=== PATIENT | female | born 1940 | race Caucasian/White ===

== ENCOUNTER 2022-10-14 15:28 | Inpatient (IN) | payer OTHER ==
[~2022-10-14] VITALS: Ht 142.2 cm; Wt 45.9 kg
[2022-10-14 15:40] VITALS: BP_SYST 138; PULSE 93; RESP 20; TEMP 98.3; O2SAT 99
[2022-10-14] MEDS ORDERED: cefTRIAXone 1 GM IVPB PREMIX 50 ML IV ONE (16:30)
[2022-10-14] MEDS ORDERED: NACL 0.9% 1,000 ML IV ONE (16:30)
[2022-10-14 17:10] LABS: BASOPHILS % (AUTO) 0.4 % (0.0-2.0); EOSINOPHILS % (AUTO) 0.1 % (0.0-4.0); HEMATOCRIT 44.3 % (36-48); HEMOGLOBIN 14.1 g/dL (12.0-16.0); LYMPHOCYTES # (AUTO) 1.1 K/uL (1.0-5.5); LYMPHOCYTES % (AUTO) 12.3 % (20.5-51.5); MEAN CORPUSCULAR HEMOGLOBIN 27 pg (27-31); MEAN CORPUSCULAR HGB CONC 32 % (32-36); MEAN CORPUSCULAR VOLUME 85 fL (79.0-98.0); MONOCYTES # (AUTO) 0.8 K/uL (0.0-1.0); MONOCYTES % (AUTO) 8.7 % (1.7-9.3); NEUTROPHILS # (AUTO) 7.1 K/uL (1.8-7.7); NEUTROPHILS % (AUTO) 78.5 % (40.0-70.0); PLATELET COUNT (AUTO) 287 K/uL (130-430); RED CELL DISTRIBUTION WIDTH 17.7 % (9.0-15.0); WHITE BLOOD COUNT (AUTO) 9.1 K/uL (4.8-10.8)
[2022-10-14 17:27] LABS: ANION GAP 14 (5-15); CALCIUM 8.8 mg/dL (8.4-11.0); CARBON DIOXIDE 25 mmol/L (23-29); CHLORIDE 104 mmol/L (98-107); GLUCOSE 123 mg/dL (74-106); SODIUM SERUM 143 mmol/L (136-145); UREA NITROGEN, BLOOD 29 mg/dL (8-21)
[2022-10-14 17:33] LABS: COLOR,URINE YELLOW (YELLOW)
[2022-10-14 17:34] LABS: BILIRUBIN,URINE NEGATIVE (NEGATIVE); BLOOD, URINE 2+ (NEGATIVE); CLARITY/URINE CLOUDY (CLEAR); GLUCOSE,URINE 2+ (NEGATIVE); KETONES,URINE NEGATIVE (NEGATIVE); LEUKOCYTE ESTERASE ,URINE 1+ (NEGATIVE); NITRITE, URINE POSITIVE (NEGATIVE); PH,URINE 5.5 (5.0-8.0); PROTEIN URINE 1+ (NEGATIVE); UROBILINOGEN,URINE 0.2 (0.2-1.0)
[2022-10-14 17:36] LABS: BACTERIA,URINE MANY /HPF (None Seen); WBC,URINE >100 /HPF (0-3)
[2022-10-14 17:41] LABS: ALANINE AMINOTRANSFERASE 20 U/L (12-78); ALBUMIN 3.8 g/dL (3.4-4.8); ASPARTATE AMINOTRANSFERASE 29 U/L (10-37); TOTAL BILIRUBIN 1.7 mg/dL (0.0-1.0); TOTAL PROTEIN, SERUM 8.1 g/dL (6.4-8.3)
[2022-10-14] MEDS ORDERED: DIGO125T PO (20:22)
[2022-10-14] MEDS ORDERED: GABA-529 PO (20:22)
[2022-10-14] MEDS ORDERED: MOM PO (20:22)
[2022-10-14] MEDS ORDERED: LIP10 PO (20:22)
[2022-10-14] MEDS ORDERED: BISA-79 PO (20:22)
[2022-10-14] MEDS ORDERED: ACET325T PO (20:22)
[2022-10-14] MEDS ORDERED: FLEPED RC (20:22)
[2022-10-14] MEDS ORDERED: FURO-150 PO (20:22)
[2022-10-14] MEDS ORDERED: DAPA5TAB PO (20:22)
[2022-10-14] MEDS ORDERED: MELA3TAB41 PO (20:22)
[2022-10-14] MEDS ORDERED: BISA10SU61 RC (20:22)
[2022-10-14] MEDS ORDERED: APIX2.5T PO (20:22)
[2022-10-14] MEDS ORDERED: AMLO5TAB4 PO (20:22)
[2022-10-14] MEDS ORDERED: SYN50 PO (20:22)
[2022-10-14] MEDS ORDERED: ALPHAGAN1 OP (20:23)
[2022-10-14 22:45] VITALS: BP_SYST 149; PULSE 101; RESP 18; TEMP 97.6; O2SAT 97
[2022-10-14 23:55] VITALS: O2SAT 97
[2022-10-15 00:17] VITALS: BP_SYST 147; PULSE 88; RESP 16; TEMP 97.3; O2SAT 97
[2022-10-15 07:40] VITALS: BP_SYST 141; PULSE 90; RESP 18; TEMP 97.1; O2SAT 98
[2022-10-15 08:32] LABS: BASOPHILS # (AUTO) 0.1 K/uL (0.0-0.2); BASOPHILS % (AUTO) 0.6 % (0.0-2.0); HEMATOCRIT 44.1 % (36-48); HEMOGLOBIN 14.3 g/dL (12.0-16.0); LYMPHOCYTES # (AUTO) 1.3 K/uL (1.0-5.5); LYMPHOCYTES % (AUTO) 14.3 % (20.5-51.5); MEAN CORPUSCULAR HEMOGLOBIN 28 pg (27-31); MEAN CORPUSCULAR HGB CONC 33 % (32-36); MEAN CORPUSCULAR VOLUME 86 fL (79.0-98.0); MONOCYTES # (AUTO) 0.8 K/uL (0.0-1.0); NEUTROPHILS # (AUTO) 7.2 K/uL (1.8-7.7); NEUTROPHILS % (AUTO) 77.1 % (40.0-70.0); PLATELET COUNT (AUTO) 274 K/uL (130-430); RED BLOOD CELL COUNT(AUTO) 5.13 MIL/uL (4.2-6.2); RED CELL DISTRIBUTION WIDTH 17.5 % (9.0-15.0); WHITE BLOOD COUNT (AUTO) 9.4 K/uL (4.8-10.8)
[2022-10-15 08:40] LABS: ANION GAP 15 (5-15); CALCIUM 8.7 mg/dL (8.4-11.0); CARBON DIOXIDE 25 mmol/L (23-29); CHLORIDE 109 mmol/L (98-107); CREATININE 0.99 mg/dL (0.55-1.30); GLUCOSE 91 mg/dL (74-106); POTASSIUM 4.1 mmol/L (3.5-5.1); SODIUM SERUM 149 mmol/L (136-145); UREA NITROGEN, BLOOD 27 mg/dL (8-21)
[2022-10-15 08:45] LABS: ALANINE AMINOTRANSFERASE 17 U/L (12-78); ALBUMIN 3.7 g/dL (3.4-4.8); ASPARTATE AMINOTRANSFERASE 29 U/L (10-37); TOTAL BILIRUBIN 1.8 mg/dL (0.0-1.0)
[2022-10-15] MEDS: EMPAGLIFLOZIN 10 MG TABLET PO SCH (09:00)
[2022-10-15] MEDS: DIGOXIN 0.125 MG TABLET PO SCH (09:00)
[2022-10-15] MEDS ORDERED: MILK OF MAGNESIA 30 ML UDC PO PRN (09:00)
[2022-10-15] MEDS ORDERED: SODIUM PHOSPHATE,MONO-DIBASIC 133 ML ENEMA RC PRN (09:00)
[2022-10-15 09:10] VITALS: O2SAT 98
[2022-10-15] MEDS: FUROSEMIDE 20 MG TABLET PO SCH (10:26)
[2022-10-15 16:00] VITALS: BP_SYST 148; PULSE 88; RESP 16; TEMP 97.1; O2SAT 99
[2022-10-15 20:00] VITALS: BP_SYST 122; PULSE 98; RESP 18; TEMP 97.7; O2SAT 99
[2022-10-15] MEDS: MELATONIN 3 MG TABLET PO SCH (21:00)
[2022-10-15] MEDS: ATORVASTATIN 10 MG TABLET PO SCH (21:00)
[2022-10-15] MEDS: GABAPENTIN 100 MG CAPSULE PO SCH (21:00)
[2022-10-15] MEDS: amLODIPine BESYLATE 5 MG TABLET PO SCH (21:00)
[2022-10-15] MEDS: BRIMONIDINE TARTRATE 0.2% 5 mL EYE DROPS OP SCH (23:43)
[2022-10-16] VITALS (9 sets, daily range): BP systolic 105–171; PULSE 91–117; RESP 16–19; TEMP 96.9–98.8; O2SAT 96–100
[2022-10-16] MEDS: LEVOTHYROXINE SODIUM 0.05 MG TABLET PO SCH (06:24)
[2022-10-16] MEDS: DIGOXIN 0.125 MG TABLET PO SCH (08:59)
[2022-10-16] MEDS: EMPAGLIFLOZIN 10 MG TABLET PO SCH (08:59)
[2022-10-16] MEDS: FUROSEMIDE 20 MG TABLET PO SCH (09:00)
[2022-10-16] MEDS: BRIMONIDINE TARTRATE 0.2% 5 mL EYE DROPS OP SCH ×2 (09:08→21:44)
[2022-10-16] MEDS ORDERED: LEVOFLOXACIN 250 MG/D5W 50 ML IV SCH (10:00)
[2022-10-16 10:10] LABS: INR 1.1 (0.8-1.2); PROTHROMBIN TIME 11.2 SECS (9.5-12.5)
[2022-10-16 10:22] LABS: DIGOXIN 0.4 ng/mL (0.80-2.00); THYROID STIMULATING HORMONE 4.07 uIu/mL (0.34-4.82)
[2022-10-16] MEDS: GABAPENTIN 100 MG CAPSULE PO SCH (21:42)
[2022-10-16] MEDS: ATORVASTATIN 10 MG TABLET PO SCH (21:42)
[2022-10-16] MEDS: amLODIPine BESYLATE 5 MG TABLET PO SCH (21:43)
[2022-10-16] MEDS: MELATONIN 3 MG TABLET PO SCH (21:44)
[2022-10-16] MEDS ORDERED: METOPROLOL TARTRATE 5 MG/5 ML VIAL IVP ONE (22:15)
[2022-10-17 01:03] VITALS: BP_SYST 87; PULSE 75; RESP 19; TEMP 97.3; O2SAT 100
[2022-10-17 05:37] LABS: BASOPHILS # (AUTO) 0.1 K/uL (0.0-0.2); BASOPHILS % (AUTO) 0.8 % (0.0-2.0); EOSINOPHILS % (AUTO) 0.2 % (0.0-4.0); HEMOGLOBIN 13.6 g/dL (12.0-16.0); LYMPHOCYTES # (AUTO) 1.4 K/uL (1.0-5.5); LYMPHOCYTES % (AUTO) 17.7 % (20.5-51.5); MEAN CORPUSCULAR HEMOGLOBIN 28 pg (27-31); MEAN CORPUSCULAR HGB CONC 32 % (32-36); MEAN CORPUSCULAR VOLUME 87 fL (79.0-98.0); MONOCYTES # (AUTO) 1.1 K/uL (0.0-1.0); MONOCYTES % (AUTO) 13.1 % (1.7-9.3); NEUTROPHILS # (AUTO) 5.5 K/uL (1.8-7.7); NEUTROPHILS % (AUTO) 68.2 % (40.0-70.0); PLATELET COUNT (AUTO) 265 K/uL (130-430); RED BLOOD CELL COUNT(AUTO) 4.85 MIL/uL (4.2-6.2); RED CELL DISTRIBUTION WIDTH 17.9 % (9.0-15.0)
[2022-10-17 05:56] LABS: ANION GAP 12 (5-15); CARBON DIOXIDE 26 mmol/L (23-29); CHLORIDE 116 mmol/L (98-107); GLUCOSE 115 mg/dL (74-106); POTASSIUM 4.4 mmol/L (3.5-5.1); SODIUM SERUM 154 mmol/L (136-145); UREA NITROGEN, BLOOD 44 mg/dL (8-21)
[2022-10-17] MEDS: LEVOTHYROXINE SODIUM 0.05 MG TABLET PO SCH (06:22)
[2022-10-17 08:11] VITALS: BP_SYST 128; PULSE 101; RESP 24; TEMP 97.9; O2SAT 99
[2022-10-17 08:30] VITALS: O2SAT 99
[2022-10-17] MEDS: DIGOXIN 0.125 MG TABLET PO SCH (09:26)
[2022-10-17] MEDS: FUROSEMIDE 20 MG TABLET JT SCH (09:27)
[2022-10-17] MEDS: BRIMONIDINE TARTRATE 0.2% 5 mL EYE DROPS OP SCH ×2 (09:27→22:56)
[2022-10-17] MEDS: LEVOFLOXACIN 250 MG/D5W 50 ML IV SCH (09:29)
[2022-10-17] MEDS: EMPAGLIFLOZIN 10 MG TABLET PO SCH (09:30)
[2022-10-17 12:59] VITALS: BP_SYST 121; PULSE 99; RESP 22; TEMP 97.5; O2SAT 97
[2022-10-17] MEDS ORDERED: METOPROLOL TARTRATE 5 MG/5 ML VIAL ONE (15:19)
[2022-10-17 16:00] VITALS: BP_SYST 125; PULSE 100; RESP 22; TEMP 97.7; O2SAT 98
[2022-10-17 20:00] VITALS: BP_SYST 129; PULSE 145; RESP 18; TEMP 97.4; O2SAT 98
[2022-10-17] MEDS ORDERED: METOPROLOL TARTRATE 5 MG/5 ML VIAL IVP ONE (21:15)
[2022-10-17] MEDS: amLODIPine BESYLATE 5 MG TABLET PO SCH (21:57)
[2022-10-17] MEDS: ATORVASTATIN 10 MG TABLET PO SCH (21:57)
[2022-10-17] MEDS: MELATONIN 3 MG TABLET PO SCH (21:57)
[2022-10-17] MEDS: GABAPENTIN 100 MG CAPSULE PO SCH (21:57)
[2022-10-18 00:13] VITALS: O2SAT 98
[2022-10-18 01:03] VITALS: BP_SYST 108; PULSE 98; RESP 18; TEMP 98.5; O2SAT 99
[2022-10-18 05:26] LABS: BASOPHILS # (AUTO) 0.1 K/uL (0.0-0.2); BASOPHILS % (AUTO) 0.6 % (0.0-2.0); EOSINOPHILS % (AUTO) 0.5 % (0.0-4.0); HEMATOCRIT 43.9 % (36-48); LYMPHOCYTES # (AUTO) 1.4 K/uL (1.0-5.5); LYMPHOCYTES % (AUTO) 15.8 % (20.5-51.5); MEAN CORPUSCULAR HEMOGLOBIN 28 pg (27-31); MEAN CORPUSCULAR HGB CONC 32 % (32-36); MEAN CORPUSCULAR VOLUME 87 fL (79.0-98.0); MONOCYTES # (AUTO) 0.8 K/uL (0.0-1.0); MONOCYTES % (AUTO) 9.1 % (1.7-9.3); NEUTROPHILS # (AUTO) 6.4 K/uL (1.8-7.7); PLATELET COUNT (AUTO) 256 K/uL (130-430); RED BLOOD CELL COUNT(AUTO) 5.07 MIL/uL (4.2-6.2); RED CELL DISTRIBUTION WIDTH 18.1 % (9.0-15.0); WHITE BLOOD COUNT (AUTO) 8.7 K/uL (4.8-10.8)
[2022-10-18 05:29] LABS: ANION GAP 12 (5-15); CALCIUM 8.9 mg/dL (8.4-11.0); CARBON DIOXIDE 27 mmol/L (23-29); CHLORIDE 118 mmol/L (98-107); CREATININE 1.97 mg/dL (0.55-1.30); GLUCOSE 127 mg/dL (74-106); POTASSIUM 4.3 mmol/L (3.5-5.1); SODIUM SERUM 157 mmol/L (136-145); UREA NITROGEN, BLOOD 74 mg/dL (8-21)
[2022-10-18] MEDS: LEVOTHYROXINE SODIUM 0.05 MG TABLET PO SCH (06:06)
[2022-10-18 08:00] VITALS: BP_SYST 133; PULSE 100; RESP 16; TEMP 97.5; O2SAT 98
[2022-10-18] MEDS: FUROSEMIDE 20 MG TABLET JT SCH (10:49)
[2022-10-18] MEDS: EMPAGLIFLOZIN 10 MG TABLET PO SCH (10:49)
[2022-10-18] MEDS: DIGOXIN 0.125 MG TABLET PO SCH (10:50)
[2022-10-18] MEDS: BRIMONIDINE TARTRATE 0.2% 5 mL EYE DROPS OP SCH ×2 (10:51→20:43)
[2022-10-18] MEDS ORDERED: DIGOXIN 0.5 MG/2 ML AMP IVP ONE ×3 (11:00→23:00)
[2022-10-18] MEDS: LEVOFLOXACIN 250 MG/D5W 50 ML IV SCH (11:05)
[2022-10-18 12:50] VITALS: BP_SYST 124; PULSE 96; RESP 16; TEMP 97.4; O2SAT 98
[2022-10-18 16:50] VITALS: BP_SYST 121; PULSE 90; RESP 16; TEMP 98; O2SAT 97
[2022-10-18 20:00] VITALS: BP_SYST 138; PULSE 70; RESP 18; TEMP 97.6; O2SAT 2; O2SAT 99
[2022-10-18] MEDS: GABAPENTIN 100 MG CAPSULE PO SCH (20:39)
[2022-10-18] MEDS: MELATONIN 3 MG TABLET PO SCH (20:41)
[2022-10-18] MEDS: METOPROLOL TARTRATE 25 MG TABLET PO SCH (20:43)
[2022-10-18] MEDS: ATORVASTATIN 10 MG TABLET PO SCH (21:17)
[2022-10-19] VITALS (12 sets, daily range): BP systolic 95–138; PULSE 64–90; RESP 16–32; TEMP 97.3–100.1; O2SAT 2–96
[2022-10-19] MEDS: LEVOTHYROXINE SODIUM 0.05 MG TABLET PO SCH (06:26)
[2022-10-19 07:29] LABS: BASOPHILS # (AUTO) 0.2 K/uL (0.0-0.2); BASOPHILS % (AUTO) 1.7 % (0.0-2.0); EOSINOPHILS % (AUTO) 0.1 % (0.0-4.0); HEMOGLOBIN 14.8 g/dL (12.0-16.0); LYMPHOCYTES # (AUTO) 1.2 K/uL (1.0-5.5); LYMPHOCYTES % (AUTO) 11.2 % (20.5-51.5); MEAN CORPUSCULAR HEMOGLOBIN 27 pg (27-31); MEAN CORPUSCULAR HGB CONC 31 % (32-36); MEAN CORPUSCULAR VOLUME 88 fL (79.0-98.0); MONOCYTES # (AUTO) 0.9 K/uL (0.0-1.0); MONOCYTES % (AUTO) 7.8 % (1.7-9.3); NEUTROPHILS # (AUTO) 8.7 K/uL (1.8-7.7); NEUTROPHILS % (AUTO) 79.2 % (40.0-70.0); PLATELET COUNT (AUTO) 252 K/uL (130-430); RED BLOOD CELL COUNT(AUTO) 5.43 MIL/uL (4.2-6.2); RED CELL DISTRIBUTION WIDTH 18.2 % (9.0-15.0)
[2022-10-19 07:52] LABS: ANION GAP 14 (5-15); CALCIUM 9.1 mg/dL (8.4-11.0); CARBON DIOXIDE 26 mmol/L (23-29); CHLORIDE 119 mmol/L (98-107); GLUCOSE 136 mg/dL (74-106); POTASSIUM 4.6 mmol/L (3.5-5.1); SODIUM SERUM 159 mmol/L (136-145); UREA NITROGEN, BLOOD 76 mg/dL (8-21)
[2022-10-19] MEDS: METOPROLOL TARTRATE 25 MG TABLET PO SCH ×2 (09:50→21:00)
[2022-10-19] MEDS: BRIMONIDINE TARTRATE 0.2% 5 mL EYE DROPS OP SCH ×2 (09:51→20:27)
[2022-10-19] MEDS: DIGOXIN 0.125 MG TABLET PO SCH (09:51)
[2022-10-19] MEDS: FUROSEMIDE 20 MG TABLET JT SCH (09:51)
[2022-10-19] MEDS: EMPAGLIFLOZIN 10 MG TABLET PO SCH (09:52)
[2022-10-19] MEDS: LEVOFLOXACIN 250 MG/D5W 50 ML IV SCH (09:53)
[2022-10-19] MEDS: MELATONIN 3 MG TABLET PO SCH ×2 (09:53→20:12)
[2022-10-19] MEDS: D5/0.45 NS 1,000 ML IV SCH (14:56)
[2022-10-19] MEDS ORDERED: FUROSEMIDE 20 MG/2 ML VIAL IVP ONE (20:00)
[2022-10-19] MEDS ORDERED: PANTOPRAZOLE SODIUM 40 MG/VIAL (PROTONIX) ONE (20:21)
[2022-10-19] MEDS: PANTOPRAZOLE SODIUM 40 MG/VIAL (PROTONIX) IVP SCH (20:23)
[2022-10-19] MEDS: GABAPENTIN 100 MG CAPSULE PO SCH (20:32)
[2022-10-19] MEDS: ATORVASTATIN 10 MG TABLET PO SCH (20:32)
[2022-10-19] MEDS ORDERED: METOPROLOL TARTRATE 5 MG/5 ML VIAL IVP PRN (20:45)
[2022-10-20] VITALS (7 sets, daily range): BP systolic 97–124; PULSE 69–88; RESP 15–20; TEMP 96.5–98.9; O2SAT 92–97
[2022-10-20 04:54] LABS: BASOPHILS % (AUTO) 0.1 % (0.0-2.0); HEMATOCRIT 50.1 % (36-48); HEMOGLOBIN 15.2 g/dL (12.0-16.0); LYMPHOCYTES # (AUTO) 1.5 K/uL (1.0-5.5); LYMPHOCYTES % (AUTO) 5.5 % (20.5-51.5); MEAN CORPUSCULAR HEMOGLOBIN 27 pg (27-31); MEAN CORPUSCULAR HGB CONC 30 % (32-36); MEAN CORPUSCULAR VOLUME 89 fL (79.0-98.0); MONOCYTES # (AUTO) 1.9 K/uL (0.0-1.0); MONOCYTES % (AUTO) 6.7 % (1.7-9.3); NEUTROPHILS # (AUTO) 24.6 K/uL (1.8-7.7); NEUTROPHILS % (AUTO) 87.7 % (40.0-70.0); PLATELET COUNT (AUTO) 219 K/uL (130-430); RED BLOOD CELL COUNT(AUTO) 5.63 MIL/uL (4.2-6.2); RED CELL DISTRIBUTION WIDTH 17.6 % (9.0-15.0)
[2022-10-20 05:15] LABS: ALANINE AMINOTRANSFERASE 15 U/L (12-78); ALBUMIN 3.5 g/dL (3.4-4.8); ANION GAP 14 (5-15); ASPARTATE AMINOTRANSFERASE 26 U/L (10-37); CALCIUM 8.9 mg/dL (8.4-11.0); CARBON DIOXIDE 26 mmol/L (23-29); CHLORIDE 119 mmol/L (98-107); CREATININE 2.74 mg/dL (0.55-1.30); GLUCOSE 204 mg/dL (74-106); POTASSIUM 4.7 mmol/L (3.5-5.1); SODIUM SERUM 159 mmol/L (136-145); TOTAL BILIRUBIN 1.1 mg/dL (0.0-1.0); UREA NITROGEN, BLOOD 94 mg/dL (8-21)
[2022-10-20] MEDS: LEVOTHYROXINE SODIUM 0.05 MG TABLET PO SCH (05:16)
[2022-10-20] MEDS: D5/0.45 NS 1,000 ML IV SCH ×2 (05:47→16:41)
[2022-10-20 07:50] LABS: BLOOD GAS PCO2 44.6 mmHg (35.0-45.0); BLOOD GAS PH 7.372 (7.350-7.450)
[2022-10-20 07:51] LABS: ABG O2 SAT% ESTIMATE 90.6 % (94.0-100.0); ALLEN'S TEST POSITIVE (P); BLOOD GAS BASE EXCESS -0.2 mmol/L (-3.0-3.0); BLOOD GAS HCO3 25.3 mmol/L (21.0-27.0); BLOOD GAS PO2 60.7 mmHg (75.0-100.0)
[2022-10-20] MEDS: FUROSEMIDE 20 MG TABLET JT SCH (08:45)
[2022-10-20] MEDS: METOPROLOL TARTRATE 25 MG TABLET PO SCH ×2 (08:46→21:00)
[2022-10-20] MEDS: DIGOXIN 0.125 MG TABLET PO SCH (08:46)
[2022-10-20] MEDS: EMPAGLIFLOZIN 10 MG TABLET PO SCH (08:46)
[2022-10-20] MEDS: BRIMONIDINE TARTRATE 0.2% 5 mL EYE DROPS OP SCH ×2 (08:54→22:11)
[2022-10-20] MEDS: PANTOPRAZOLE SODIUM 40 MG/VIAL (PROTONIX) IVP SCH (08:54)
[2022-10-20] MEDS ORDERED: DIGOXIN 0.5 MG/2 ML AMP IVP ONE (11:30)
[2022-10-20] MEDS ORDERED: LEVOTHYROXINE SODIUM 100 MCG/5 ML VIAL IVP ONE (11:30)
[2022-10-20] MEDS: ATORVASTATIN 10 MG TABLET PO SCH (21:00)
[2022-10-20] MEDS: MELATONIN 3 MG TABLET PO SCH (21:00)
[2022-10-20] MEDS: GABAPENTIN 100 MG CAPSULE PO SCH (21:00)
[2022-10-21 01:01] VITALS: BP_SYST 133; PULSE 75; RESP 20; TEMP 98.2; O2SAT 98
[2022-10-21 04:26] LABS: BASOPHILS % (AUTO) 0.1 % (0.0-2.0); HEMATOCRIT 49.2 % (36-48); HEMOGLOBIN 15.3 g/dL (12.0-16.0); LYMPHOCYTES # (AUTO) 1.2 K/uL (1.0-5.5); LYMPHOCYTES % (AUTO) 4.8 % (20.5-51.5); MEAN CORPUSCULAR HEMOGLOBIN 27 pg (27-31); MEAN CORPUSCULAR HGB CONC 31 % (32-36); MEAN CORPUSCULAR VOLUME 89 fL (79.0-98.0); MONOCYTES # (AUTO) 1.7 K/uL (0.0-1.0); MONOCYTES % (AUTO) 6.9 % (1.7-9.3); NEUTROPHILS # (AUTO) 21.5 K/uL (1.8-7.7); NEUTROPHILS % (AUTO) 88.2 % (40.0-70.0); PLATELET COUNT (AUTO) 186 K/uL (130-430); RED BLOOD CELL COUNT(AUTO) 5.56 MIL/uL (4.2-6.2); RED CELL DISTRIBUTION WIDTH 18.3 % (9.0-15.0); WHITE BLOOD COUNT (AUTO) 24.3 K/uL (4.8-10.8)
[2022-10-21 04:52] LABS: ALANINE AMINOTRANSFERASE 14 U/L (12-78); ANION GAP 14 (5-15); ASPARTATE AMINOTRANSFERASE 34 U/L (10-37); CARBON DIOXIDE 26 mmol/L (23-29); CREATININE 2.73 mg/dL (0.55-1.30); GLUCOSE 151 mg/dL (74-106); PHOSPHORUS 3.7 mg/dL (2.7-4.5); POTASSIUM 4.3 mmol/L (3.5-5.1); THYROID STIMULATING HORMONE 1.81 uIu/mL (0.34-4.82); TOTAL BILIRUBIN 1.2 mg/dL (0.0-1.0); TOTAL PROTEIN, SERUM 7.7 g/dL (6.4-8.3)
[2022-10-21] MEDS: D5/0.45 NS 1,000 ML IV SCH (05:30)
[2022-10-21 06:37] LABS: CHLORIDE 125 mmol/L (98-107); SODIUM SERUM 165 mmol/L (136-145)
[2022-10-21 06:38] LABS: UREA NITROGEN, BLOOD 108 mg/dL (8-21)
[2022-10-21 08:00] VITALS: BP_SYST 151; PULSE 82; RESP 24; TEMP 98.2; O2SAT 88; O2SAT 94
[2022-10-21 08:15] LABS: ABG O2 SAT% ESTIMATE 91.5 % (94.0-100.0); BLOOD GAS BASE EXCESS -0.5 mmol/L (-3.0-3.0); BLOOD GAS HCO3 23.8 mmol/L (21.0-27.0); BLOOD GAS PCO2 38.2 mmHg (35.0-45.0); BLOOD GAS PH 7.413 (7.350-7.450); BLOOD GAS PO2 60.3 mmHg (75.0-100.0)
[2022-10-21 08:18] LABS: ALLEN'S TEST POSITIVE (P)
[2022-10-21] MEDS: D5W 1,000 ML IV SCH ×3 (08:42→23:30)
[2022-10-21] MEDS: PANTOPRAZOLE SODIUM 40 MG/VIAL (PROTONIX) IVP SCH (08:43)
[2022-10-21] MEDS: EMPAGLIFLOZIN 10 MG TABLET PO SCH (08:45)
[2022-10-21] MEDS: LEVOTHYROXINE SODIUM 100 MCG/5 ML VIAL IVP SCH (08:46)
[2022-10-21] MEDS: METOPROLOL TARTRATE 25 MG TABLET PO SCH ×2 (08:46→21:00)
[2022-10-21] MEDS ORDERED: DIGOXIN 0.5 MG/2 ML AMP IVP SCH (09:00)
[2022-10-21] MEDS: BRIMONIDINE TARTRATE 0.2% 5 mL EYE DROPS OP SCH ×2 (13:23→21:18)
[2022-10-21 17:30] VITALS: BP_SYST 144; PULSE 80; RESP 22; TEMP 99.6; O2SAT 98
[2022-10-21 20:00] VITALS: BP_SYST 136; PULSE 83; RESP 20; TEMP 97.7; O2SAT 93; O2SAT 95
[2022-10-21] MEDS: MELATONIN 3 MG TABLET PO SCH (21:00)
[2022-10-21] MEDS: ATORVASTATIN 10 MG TABLET PO SCH (21:00)
[2022-10-21] MEDS ORDERED: LEVOFLOXACIN 250 MG/D5W 50 ML IV SCH (21:00)
[2022-10-21] MEDS: GABAPENTIN 100 MG CAPSULE PO SCH (21:00)
[2022-10-22] VITALS (10 sets, daily range): BP systolic 122–133; PULSE 65–86; RESP 16–20; TEMP 96.9–97.9; O2SAT 93–95
[2022-10-22 05:11] LABS: BASOPHILS # (AUTO) 0.1 K/uL (0.0-0.2); BASOPHILS % (AUTO) 0.7 % (0.0-2.0); HEMATOCRIT 48.9 % (36-48); HEMOGLOBIN 15.1 g/dL (12.0-16.0); LYMPHOCYTES % (AUTO) 4.7 % (20.5-51.5); MEAN CORPUSCULAR HEMOGLOBIN 28 pg (27-31); MEAN CORPUSCULAR HGB CONC 31 % (32-36); MEAN CORPUSCULAR VOLUME 89 fL (79.0-98.0); MONOCYTES # (AUTO) 1.3 K/uL (0.0-1.0); MONOCYTES % (AUTO) 6.2 % (1.7-9.3); NEUTROPHILS # (AUTO) 18.5 K/uL (1.8-7.7); NEUTROPHILS % (AUTO) 88.4 % (40.0-70.0); PLATELET COUNT (AUTO) 165 K/uL (130-430); RED CELL DISTRIBUTION WIDTH 17.9 % (9.0-15.0); WHITE BLOOD COUNT (AUTO) 20.9 K/uL (4.8-10.8)
[2022-10-22 05:22] LABS: ANION GAP 12 (5-15); CALCIUM 8.6 mg/dL (8.4-11.0); CARBON DIOXIDE 25 mmol/L (23-29); CHLORIDE 118 mmol/L (98-107); CREATININE 2.35 mg/dL (0.55-1.30); GLUCOSE 190 mg/dL (74-106); SODIUM SERUM 155 mmol/L (136-145)
[2022-10-22 05:47] LABS: UREA NITROGEN, BLOOD 106 mg/dL (8-21)
[2022-10-22] MEDS: D5W 1,000 ML IV SCH (06:28)
[2022-10-22 07:51] LABS: ABG O2 SAT% ESTIMATE 92.5 % (94.0-100.0); BLOOD GAS BASE EXCESS -1.4 mmol/L (-3.0-3.0); BLOOD GAS HCO3 22.7 mmol/L (21.0-27.0); BLOOD GAS PCO2 36.6 mmHg (35.0-45.0)
[2022-10-22 07:55] LABS: ALLEN'S TEST POSITIVE (P)
[2022-10-22] MEDS: EMPAGLIFLOZIN 10 MG TABLET PO SCH (09:00)
[2022-10-22] MEDS: METOPROLOL TARTRATE 25 MG TABLET PO SCH ×2 (09:00→21:00)
[2022-10-22] MEDS: BRIMONIDINE TARTRATE 0.2% 5 mL EYE DROPS OP SCH (10:08)
[2022-10-22] MEDS: PANTOPRAZOLE SODIUM 40 MG/VIAL (PROTONIX) IVP SCH (10:08)
[2022-10-22] MEDS: LEVOTHYROXINE SODIUM 100 MCG/5 ML VIAL IVP SCH (10:08)
[2022-10-22] MEDS ORDERED: *TPN PER PHARMACY XX PRN (13:30)
[2022-10-22] MEDS ORDERED: DEXTROSE 50% JECT 50 ML DISP.SYRIN IVP PRN (13:30)
[2022-10-22] MEDS ORDERED: INSULIN REGULAR, HUMAN 100 UNITS/ML, 3 ML VIAL (humuLIN R) SUBCUT PRN (13:30)
[2022-10-22 14:39] LABS: INR 1.1 (0.8-1.2); PROTHROMBIN TIME 11.4 SECS (9.5-12.5)
[2022-10-22] MEDS: ATORVASTATIN 10 MG TABLET PO SCH (21:00)
[2022-10-22] MEDS: MELATONIN 3 MG TABLET PO SCH (21:00)
[2022-10-22] MEDS: GABAPENTIN 100 MG CAPSULE PO SCH (21:00)
[2022-10-23] MEDS ORDERED: DIGOXIN 0.5 MG/2 ML AMP IVP SCH ×2 (09:00)
== END 2022-10-22 22:36 | DRG 64 ==
LOC: SED 15:28 → SMU 18:25 → STU 22:39 → SMU 22:39 → STU 10-15 23:03
PROVIDERS: ADMIT Internal Medicine; ATTEND Internal Medicine
PROC: 4A10X4Z Monitoring of Central Nervous Electrical Activity, External Approach (ICD-10-PCS; principal; 2022-10-17)
DX: I63.9 Cerebral infarction, unspecified (principal); G93.41 Metabolic encephalopathy; E46 Unspecified protein-calorie malnutrition; N39.0 Urinary tract infection, site not specified; I13.0 Hypertensive heart and chronic kidney disease with heart failure and stage 1 through stage 4 chronic kidney disease, or unspecified chronic kidney disease; N17.9 Acute kidney failure, unspecified; G81.91 Hemiplegia, unspecified affecting right dominant side; E78.5 Hyperlipidemia, unspecified; I48.91 Unspecified atrial fibrillation; H40.9 Unspecified glaucoma; E03.9 Hypothyroidism, unspecified; B96.20 Unspecified Escherichia coli [E. coli] as the cause of diseases classified elsewhere; E11.22 Type 2 diabetes mellitus with diabetic chronic kidney disease; M06.9 Rheumatoid arthritis, unspecified; N18.9 Chronic kidney disease, unspecified; Z68.22 Body mass index [BMI] 22.0-22.9, adult; Z96.651 Presence of right artificial knee joint; I50.9 Heart failure, unspecified; R13.10 Dysphagia, unspecified; Z86.73 Personal history of transient ischemic attack (TIA), and cerebral infarction without residual deficits; Z90.710 Acquired absence of both cervix and uterus; Z88.0 Allergy status to penicillin; Z88.6 Allergy status to analgesic agent
CPT/HCPCS: 36415; 36600; 70450-TC; 70551; 71045; 76376; 76770; 80048; 80053; 80162; 81000; 82803; 82962; 83605; 83735; 83880; 84100; 84443; 85025; 85610-TC; 85730-TC; 87040; 87081; 87086; 92610-GN; 93005; 93306; 94760; 95816; 96365; 97110-GP; 97116-GP; 97530-GP; 99285; C9113; G0378; J0696; J1160; J1940; J1956; J3490; J7060